=== PATIENT | female | born 2000 | race Caucasian/White ===

== ENCOUNTER 2025-04-25 13:17 | Emergency (ER) | payer MEDICAID, SELFPAY ==
--- OUTSIDE RECORDS SUMMARY | 2025-04-25 13:26 | XMS_ITS | Clinical Summary ---
Author Organization [facility] Address [address] [place] [id number] Care Team Providers Care Animal Nutrition Consultant Name Role Phone Unavailable Primary Care Provider Unavailabl e Allergies No known active allergies Medications vit-iron fumarate-fa (LEX ) 28 mg iron- 800 mcg Tablet Take 1 Tablet by mouth daily. Active aspirin (ECOTRIN EC) 81 mg Tablet, Delayed Release (E.C.) Take 81 mg by mouth daily. Active Social History Tobacco Use Types Packs/Day Years Used Date Smoking Tobacco: Never Smokeless Tobacco: Former Tobacco Cessation:Counseling Given: Not Answered Alcohol Use Standard Drinks/Week Comments Not Currently 0 (1 standard drink = 0.6 oz pur e alcohol) Feeling Safe Answer Date Recorded Are you in a relationship wi th someone who hurts you emotionally and/or physically? No 11/10/2024 Comments No Sex and Gender Information Value Date Recorded Sex Assigned at Not on file Legal Sex Female 8:36 AM CDT Gender Identity Not on file Sexual Orientation Not on file Last Filed Vital Signs Vital Sign Reading Time Taken Comments Blood Pressure 120/71 11/10/2024 6:56 PM CDT Pulse - - Temperature 37.1 C (98.7 F) 11/10/2024 6:56 PM CDT Respiratory Rate 16 11/10/2024 6:56 PM CDT Oxygen Saturation 100% 11/10/2024 6:55 PM CDT Inhaled Oxygen Concentration - - Weight 122.2 kg (269 lb 8 oz) 11/10/2024 5:16 PM CDT Height 170.2 cm (5' 7 ) 11/10/2024 5:16 PM CDT Body Mass Index 42.21 11/10/2024 5:16 PM CDT Plan of Treatment Health Maintenance Due Date Last Done Comments CHLAMYDIA SCREENING (ANNUAL) 11-24 YEARS 2013 CERVICAL CANCER SCREENING 2023 HPV/Cotest (21-29) 2023 PAP SMEAR 2023 INFLUENZA VACCINE (#1) 2025 05/15/2024, 2017 DTAP/TDAP/TD VACCINES (8 - T d or Tdap) 09/19/2034 09/19/2024, 01/16/2016, 09/20/2007, Additional history exists HEPATITIS B VACCINES Completed 02/05/2003, 2002, 2002 HPV VACCINES Completed 04/10/2018, 01/16/2016 Insurance [facility] [id number]
[2025-04-25 13:30] VITALS: BP 103/69; PULSE 84; RESP 16; TEMP 36.7; O2SAT 98
--- NOTE | 2025-04-25 13:42 | W.ED.BACK ---
HPI - Back Pain/Injury General: Chief Complaint: Back Pain/Injury Stated Complaint: L side Lower back pain Time Seen by Provider: 04/25/25 13:40 History of Present Illness: This is a healthy 25-year-old female who presents to the emergency room with low back pain. Said she lifted something heavy yesterday and has had severe pain since. No saddle numbness, no fecal or urinary retention or incontinence, no focal motor deficit, no sensory deficit. Related Data Previous Rx's ?Medication ?Instructions ?Recorded cyclobenzaprine 10 mg tablet 10 mg PO Q8H PRN muscle spasm #20 04/25/25 tabs dexamethasone 6 mg tablet 6 mg PO DAILY 5 days #5 tabs 04/25/25 diclofenac sodium 50 mg 50 mg PO BID PRN pain #14 tabs 04/25/25 tablet,delayed release hydrocodone 5 mg-acetaminophen 325 1 tab PO Q6H PRN pain #10 tabs 04/25/25 mg tablet Allergies Allergy/AdvReac Type Severity Reaction Status Date / Time No Known Allergies Allergy Verified 04/25/25 13:33 Review of Systems Narrative: Constitutional symptoms: Negative except as documented in HPI. Skin symptoms: Negative except as documented in HPI. Eye symptoms: Negative except as documented in HPI. ENMT symptoms: Negative except as documented in HPI. Respiratory symptoms: Negative except as documented in HPI. Cardiovascular symptoms: Negative except as documented in HPI. Gastrointestinal symptoms: Negative except as documented in HPI. Genitourinary symptoms: Negative except as documented in HPI. Musculoskeletal symptoms: Negative except as documented in HPI. Neurologic symptoms: Negative except as documented in HPI. Psychiatric symptoms: Negative except as documented in HPI. Endocrine symptoms: Negative except as documented in HPI. Physical Exam Narrative: EXAM NARRATIVE: General: Alert, no acute distress. Head: Normocephalic Neck: Trachea midline Eye: Extraocular movements are intact. Ears, nose, mouth and throat: Oral mucosa moist Respiratory: Respirations are non-labored Musculoskeletal: Normal ROM Back: no step off, no focal tenderness, some paraspinal muscle tenderness Neurological: Alert and oriented, No focal neurological deficit observed. Psychiatric: Cooperative, appropriate mood & affect. Course Vital Signs: Vital signs: Vital Signs Temperature 98.0 F 04/25/25 13:30 Pulse Rate 78 04/25/25 14:04 Respiratory Rate 16 04/25/25 14:04 Blood Pressure 110/66 11/13/25 14:04 Pulse Oximetry 97 04/25/25 14:04 Oxygen Delivery Me thod Room Air 04/25/25 13:30 MDM - Back Pain/Injury Medical Decision Making Medical decision making Patient's reason for coming to the emergency room: Social determinants: Patient is and has a small child and is breast-feeding. I reviewed the patient's medical record. Patient has had no previous visits to this institution. I reviewed the patient's current home meds Patient takes no chronic home medications. Alternate historians: None Differential diagnosis: including but not limited to and based on the above HPI, review of systems and physical exam: Patient has musculoskeletal back pain with no neurologic symptoms. No imaging or lab work were indicated today. Assessment of risk: Level of risk: Moderate risk patient. Consideration of breast-feeding. We did discuss that she will pump and dump while she is taking these medications. Assessment and plan: Low back pain ?IM Decadron and Toradol. P.o. Weston in the emergency room. - Discharged home - Discussed plan with patient. Answered any questions. - Evaluation and treatment of this problem were appropriate in the emergency setting. No radiology studies performed this visit Discharge Plan Discharge Patient Disposition: Home Clinical Impression: Strain of lumbar region Condition: Stable Prescriptions: New cyclobenzaprine 10 mg tablet 10 mg PO Q8H PRN (Reason: muscle spasm) Qty: 20 0RF hydrocodone-acetaminophen 5-325 mg tablet 1 tab PO Q6H PRN (Reason: pain) Qty: 10 0RF dexamethasone 6 mg tablet 6 mg PO DAILY 5 Days Qty: 5 0RF diclofenac sodium 50 mg tablet,delayed release (DR/EC) 50 mg PO BID PRN (Reason: pain) Qty: 14 0RF Discharge Orders: Discharge ED (Routine); Ordered 04/25/25 Ordered By: Mindi Evans Discharge Diet: Usual diet Discharge Activity: Increase activity as tolerated Patient Instructions: Low Back Strain (ED), Opioid Safety, Pain Management, Patient Portal & Andrea Instructions Activity Restrictions/Additional Instructions: Do not breast-feed while taking these medications. Thank you for choosing [facility] for your healthcare needs today. You have been screened and evaluated and felt safe for discharge. Health conditions do change or evolve sometimes and as such it is important that you follow up with your Primary Doctor to be re checked, 3-5 days is a general good time frame for follow up. You are always welcome to return to the ED for re assessment if your symptoms are worsening or you have new concerns Print Language: Turkish Coding Level of Care Code ED Cfd Engineer for Jo Don
[2025-04-25] MEDS: HYDROcodone-acetaminophen 10-325 mg Tablet 1 TAB PO (13:59)
[2025-04-25 14:04] VITALS: BP 110/66; PULSE 78; RESP 16; O2SAT 97
== END 2025-04-25 14:18 | disposition home or self-care (01) ==
PROVIDERS: Emergency Provider Emergency Medicine
DX: S39.012A Strain of muscle, fascia and tendon of lower back, initial encounter (principal); X50.0XXA Overexertion from strenuous movement or load, initial encounter
CPT/HCPCS: 96372; 99284; J1100; J1885; J9999